=== PATIENT | male | born 1980 | race Caucasian/White ===

== ENCOUNTER → 2020-08-14 | Outpatient (CLI) | payer MEDICAID ==
[2020-02-08 18:46] VITALS: BP 117/68
[2020-08-15 21:19] LABS: SYPHILIS AB SCREEN w REFLEX Negative (Negative)
== END ==
LOC: RAD 16:52
PROVIDERS: Physician Assistant
DX: Z11.3 Encounter for screening for infections with a predominantly sexual mode of transmission (principal); M25.531 Pain in right wrist; M25.532 Pain in left wrist; M25.571 Pain in right ankle and joints of right foot; M25.572 Pain in left ankle and joints of left foot